=== PATIENT | female | born 1950 | race African-American/Black ===

== ENCOUNTER 2024-05-12 09:45 | Emergency (ER) | payer OTHER ==
[2024-05-12] MEDS ORDERED: ACETAMINOPHEN 325 MG TABLET (FP) ONE (10:01)
[2024-05-12 10:17] VITALS: TEMP 98.1; BMI 23.6
[2024-05-12] MEDS: ACETAMINOPHEN 500 MG TABLET (FP) PO ONE (10:26)
[2024-05-12 11:19] VITALS: BP 157/77; PULSE 56; RESP 17
== END 2024-05-12 12:55 | disposition home or self-care (01) ==
LOC: FER 09:45
PROC: 0HQ1XZZ Repair Face Skin, External Approach (ICD-10-PCS; principal; 2024-05-12)
DX: S01.112A Laceration without foreign body of left eyelid and periocular area, initial encounter (principal); W01.0XXA Fall on same level from slipping, tripping and stumbling without subsequent striking against object, initial encounter
CPT/HCPCS: 70450-TC; 72125-TC; 99284-25

== ENCOUNTER 2024-05-19 07:43 | Emergency (ER) | payer OTHER ==
[2024-05-19 08:23] VITALS: BP 150/75; PULSE 60; RESP 18; TEMP 98.4; BMI 25.7
== END 2024-05-19 08:27 | disposition home or self-care (01) ==
LOC: FER 07:43
DX: Z48.02 Encounter for removal of sutures (principal)
CPT/HCPCS: 99281-25